=== PATIENT | male | born 1995 | race Two or more races ===

== ENCOUNTER 2018-11-04 09:20 | Emergency (ER) | payer OTHER ==
--- NOTE | 2018-11-04 11:01 | EDPHY ---
General Time Seen by Provider: 11/04/18 10:55 Narrative: CLINICAL IMPRESSION: URI, pharyngitis, cough ASSESSMENT/PLAN: Patient is a 23-year-old male with a history of asthma who presents to the emergency department with complaints of a sore throat, runny nose, congestion, cough and left earache. Patient is afebrile and non toxic appearing, he is in no acute distress. His vital signs were reviewed, there were no clinical findings to suggest sepsis or serious systemic illness. On physical exam there is mild bilateral tonsillar enlargement, small ulceration noted on the right tonsil. There was no stridor, drooling, hypoxia, respiratory distress or trismus. His phonation was normal without hot potato voice. Rapid strep negative, culture is still pending. History and PE consistent with URI and cough likely viral in nature, Patient treated with Decadron and ibuprofen. He will continue taking ibuprofen and/or Tylenol as needed for pain. There was no evidence of OM, OE, airway obstruction , uvular deviation, retropharyngeal abscess, peritonsillar abscess, deep space infection, angioedema, [place] angina, epiglottitis, sinusitis, otitis media, dental infection, meningitis or pneumonia. He has had no fever, low suspicion for influenza; did not test as symptoms have been going on for greater than 48 hr. The patient does not have a primary care provider, a referral was given to him and he understands the importance of establishing care. On repeat examination the patient is well-appearing and in no acute distress, his vital signs remained normal. Strict return precautions discussed- he is to return should she develop worsening sore throat, drooling, change in voice, inability to pass secretions or any other concerning symptom. Patient verbalizes understanding and is in agreement with this plan. DIFFERENTIAL DX: Sinusitis, bacterial pharyngitis, meningitis, pneumonia, influenza ED COURSE: CHIEF COMPLAINT: Sore throat, runny nose, congestion, cough HPI: Patient is a 23-year-old male with a history of asthma who presents to the emergency department with 2 days of runny nose, congestion, left earache, sore throat and cough. Patient reports on Saturday he started to develop a generalized sore throat and left ear ache, since then he has developed runny nose, congestion and a frequent dry cough. Patient denies any fever, chills, difficulty swallowing, change in voice, lumps in neck, chest pain or shortness of breath. He did not get an influenza shot this year. No known sick contacts. Appetite has been normal, no nausea or vomiting. He denies any abdominal pain or rash. PAST MEDICAL HISTORY: Asthma Pertinent Past Surgical History: Denies Family History: Noncontributory Social History: Denies alcohol, denies cigarette smoking, denies drug use ROS: A full 10 point review of systems was negative except for those mentioned in HPI. PHYSICAL EXAM: General Appearance: Well appearing, no distress. HENT: Normocephalic, atraumatic. Bilateral external ears are normal appearing. TMs are clear bilaterally no perforation or FB, no injection, no evidence of serous or mucopurulent otitis. There is mild bilateral and symmetric tonsillar enlargement, small ulceration noted on the right tonsil. Posterior pharynx is clear. His phonation is normal , there is no trismus and no stridor. Dentition without abnormality. Eyes: PERRLA, no nystagmus, swelling, discharge, pain or photosensitivity. Conjunctiva pink, no pallor or injection. Neck: Supple, nontender, no lymphadenopathy, no midline pain, FROM, no meningismus. Respiratory: There are no retractions, lungs are clear to auscultation. Cardiac: Regular rate and rhythm, no murmurs or gallops. Gastrointestinal: Abdomen is soft, nontender, bowel sounds normal, no masses/ hernia, no rigidity, guarding or focal peritoneal findings. Skin: Warm, dry, no rashes, no nodules on palpation. MEDICAL DECISION MAKING: Patient was seen independently. Secondary supervising physician at time of evaluation was Dr. Ambrocio, she did not evaluate this patient however she is aware of results and plan of care. Diagnosis: URI, pharyngitis, cough. New, requires workup Summary: See Assessment and Plan for summary of ED visit. Clinical lab tests: ordered / reviewed. Independent visualization of images, tracing, or specimens: No. Decision to obtain medical records or history from someone other than the patient: No Review / Summarize previous medical records: No Discussed patient with another provider: Yes, Dr. Ambrocio Patient Progress: Stable, discharged. - History Smoking Status: Never smoked - Objective Vital Signs: Initial Vital Signs Temperature (C) 36.5 C 11/04/18 09:33 Heart Rate 81 11/04/18 09:33 Respiratory Rate 16 11/04/18 09:33 Blood Pressure 108/73 11/04/18 09:33 O2 Sat (%) 98 11/04/18 09:33 O2 Delivery Mode Room Air Allergies/Adverse Reactions: No Known Allergies Allergy (Verified 08/01/13 15:01) Home Medications: Medication Instructions Recorded NK [No Known Home Meds] 11/04/18 Medications Given: Discontinued Medications Dexamethasone (Decadron) 10 mg PO EDNOW ONE Stop: 11/04/18 11:03 Last Admin: 11/04/18 11:13 Dose: 10 mg Ibuprofen (Motrin) 400 mg PO EDNOW ONE Stop: 11/04/18 11:03 Last Admin: 11/04/18 11:13 Dose: 400 mg Departure - Departure Disposition: Home, Routine, Self-Care Clinical Impression: Cough, Pharyngitis, Upper respiratory infection Condition: Good Instructions: Pharyngitis (ED), Upper Respiratory Infection (ED) Additional Instructions: DISCHARGE INSTRUCTIONS FROM YOUR DOCTOR Thank you for visiting our emergency department today. Please keep in mind that discharge from the emergency department does not mean that there is nothing wrong - it simply means that we have not identified an emergency condition that requires further evaluation or treatment in the hospital. You should always plan to follow up with primary care for re-evaluation of your condition in the next 2-3 days. Rest, push non-diuretic, non-caffeinated fluids, consume a healthy diet, all to help support your immune system fight infection. Consider running a coolmist humidifier in the bedroom. Consider warm salt water gargles for sore throat. Consider over the counter saline nasal washes ie: Neilmed sinus rinse, [place] or [place]. Consider over the counter Mucinex for congestion and/or cough as directed. For pain control: You may take Tylenol, I recommend 500-1000 mg every 6-8 hours as needed. Take with food and a full glass of water. Stop taking if this is upsetting her stomach. Do not exceed 4000 mg in a 24 hr period. You may also take ibuprofen, recommend 400 mg every 6 hr. Take with food and a full glass of water. Stop taking if this upsets her stomach. Do not exceed 2400 mg in a 24 hr period. As discussed, in the setting of a viral illness, you may develop a secondary bacterial infection, requiring an antibiotic. Watch for new or changing symptoms ie: new ear pain or drainage, increasing cough, shortness of breath, high fever, or any other concerning symptoms. Schedule a follow-up appointment with your primary care physician in the next 2- 3 days for re-evaluation, sooner for any new concerns. Return for high fever, shaking chills, severe headache, facial redness or swelling, drainage from your ears, difficulty breathing or swallowing, throat tightness, drooling, change in voice, inability to open your mouth normally, severe neck pain, neck stiffness, shortness of breath, wheezing, noisy breathing , coughing up blood, chest pain, vomiting, diarrhea, bloody stools, decreased urine output or other concerns for dehydration, bloody urine, rash, dizziness, weakness, fainting, or for any other new, worsening or worrisome symptoms. People present with illnesses and injuries in different ways, and it is always possible that we have missed something. You may always return for re-evaluation if symptoms worsen or if they are not improving or if you develop new/different symptoms. Again, thank you for choosing our emergency department. We hope that you feel better. Referrals: Amirah Glover MD [Medical Doctor] - As per Instructions (Please establish care with a primary care provider)
[2018-11-04] MEDS ORDERED: DEXAMETHASONE 4 MG TAB PO ONE (11:02)
[2018-11-04] MEDS ORDERED: IBUPROFEN 200 MG TAB PO ONE (11:02)
[2018-11-04 11:23] VITALS: BP 109/82
== END 2018-11-04 11:22 | disposition home or self-care (01) ==
DX: R05 Cough (principal); J02.9 Acute pharyngitis, unspecified